=== PATIENT | female | born 1995 | race Hispanic/Latino ===

== ENCOUNTER 2017-02-05 20:08 | Emergency (ER) | payer OTHER ==
[~2017-02-05 20:08] MED LIST: DOCU-41 PO; HYDR-4003 PO; IBUP800T28 PO; NOMED; PROC5TAB50 PO
[2017-02-05 20:11] VITALS: BP 118/77; PULSE 65; RESP 16; O2SAT 99
--- NOTE | 2017-02-05 20:53 | ED.REPORT ---
HPI-Back Pain Under 40 Date of Service Feb 05, 2017 ED Provider: Dr. Emmett Garrdio The patient is an otherwise healthy 21 year old female who presents to the ED c/ o back pain onset yesterday after falling while playing volleyball and landing on her back. She did not initially feel any pain. Then, this morning she woke up with severe back pain that radiates down both legs. Pain is exacerbated by movement. Pt denies dysuria, , incontinence, bowel or bladder dysfunction, weakness, numbness, urinary changes, or any other symptoms. Nursing Notes Stated Complaint: LUMBAR PAIN Chief Complaint: Back Pain or Injury Nursing Notes Reviewed: Yes Allergies: Coded Allergies: No Known Allergies (Verified Allergy, Unknown, 02/05/17) Scheduled Docusate Sodium (Colace) 100 Mg Capsule 100 MG PO DAILY Prochlorperazine Maleate (Compazine) 5 Mg Tablet 5 MG PO QID Scheduled PRN Hydrocodone-Acetaminophen 5-325 mg (Hydrocodone-Acetaminophen 5-325 mg) 1 Each Tablet 1-2 TABLET PO Q4H PRN PRN For Pain Ibuprofen (Ibuprofen) 800 Mg Tablet 800 MG PO Q6H PRN PRN For Pain Miscellaneous Medications No Historical Medication (No Historical Medication) Ea General Time Seen by MD: 20:53 Chief Complaint Back pain Hx Obtained From: Patient Arrived By: Walk-in Sudden in Onset?: Yes Onset Occurred: Yesterday Symptom Duration: Since onset Caused by: Fall Location: : Spinal lumbar area Quality: Painful Radiation: : Left leg below knee: Right leg below knee Severity: Current: Severe Pertinent Negative: Pt denies other symptoms Exacerbated by: Movement Recent Healthcare: No recent doctor visit, No recent hospitalization Similar Sx Previous: No Past Medical History Past Medical History Denies Past Surgical History Denies Smoking History Never Smoker Social History Other Social History: Local resident Ambulatory Status Independent Review of Systems Female: Denies: Dysuria, Incontinence, Urinary frequency, Urination decreased Musculoskeletal: Reports: Back pain, Extremity pain, Denies: Neck pain Neurologic: Denies: Bladder dysfunction, Bowel dysfunction, Focal weakness, Numbness Complete sys rev & neg: except as marked. Physical Exam Physical Exam Notes: Initial Vital Signs Vital Signs (First) Date Time Temp Pulse Resp B/P Pulse Ox O2 Delivery O2 Flow Rate FiO2 02/05/17 20:11 36.5 65 16 118/77 99 Room Air Initial VS: Reviewed General/Constitutional: Awake, Alert, Cooperative Flank / Spine / Paraspinal: Positive: Lumbar paraspinal tend... tender at L5 and S1 Neurologic: Oriented X3, Speech NL Neck: Atraumatic, Supple Lower Extremity / Pelvis / MS: Atraumatic, Full range of motion, No deformity Head / Eyes: Atraumatic, Normocephalic ENT: Atraumatic, Mucous membranes moist Upper Extremity / MS: Atraumatic, Full range of motion, No deformity Wrist / Hand: Atraumatic, Full range of motion, No deformity Ankle / Foot: Atraumatic, Full range of motion, No deformity Skin: Atraumatic, Color NL, No rash Interpretation & Diagnostics Interpretation & Diagnostics: PELVIS X-RAY IMPRESSION: No acute fracture. No osseous lesion. If clinical suspicion and/or symptoms persist, further assessment with repeat plainfilms, or advanced imaging (e.g., CT, MRI, or bone scan) may be helpful for further assessment. Dictated by: Lynnette Mayer M.D. on 02/05/2017 at 21:50 Approved by: Lynnette Mayer M.D. on 02/05/2017 at 21:50 X-Ray Interpretation Xray Interpretation: LUMBAR SPINE X-RAY IMPRESSION: No acute fracture. No osseous lesion. If clinical suspicion and/or symptoms persist, further assessment with repeat plainfilms, or advanced imaging (e.g., CT, MRI, or bone scan) may be helpful for further assessment. Dictated by: Lynnette Mayer M.D. on 02/05/2017 at 21:50 Approved by: Lynnette Mayer M.D. on 02/05/2017 at 21:51 Interpretation / Wet Read by: Interpret - Radiologist Re-Eval/Medical Decision Med Decision/Clinical Course 2100: plan for Toradol and lumbar spine and pelvic x-ray X-rays reassuring. No fracture. Brief course of NSAIDs and opiates for moderate to severe pain. Close outpatient follow-up. Routine opiate warnings given. Counseled Regarding: Diagnosis, Lab results, Need for follow-up, When/why to return to ED Discharge & Departure Impression: Primary Impression: Low back pain Chronicity: acute Back pain laterality: bilateral Sciatica presence: unspecified whether sciatica present Qualified Code: M54.5 - Low back pain Disposition: Home All VS Reviewed: Yes Condition: Stable Patient Instructions: Acute Low Back Pain (ED), Low Back Strain (ED) Additional Instructions: Thank you for entrusting us with your care today. Your x-rays are reassuring, I suspect you have a soft tissue injury. You will likely be very sore for the next 5 days. Take Naproxen 2x/daily for moderate pain. Take 1-2 [place] every 6 hours as needed for severe pain. This can be habit forming so use sparingly. Do not drive or drink alcohol consume acetaminophen for taking the [place]. Follow up with your primary care physician in the next week. Return to the Emergency Department if you experience any new or worsening symptoms. I hope you feel better soon! Referrals: [facility] (PCP) Chrisibcharmaine Attestation Portion of this note were transcribed by Ankita Baez. I, Dr. Garrido, personally performed the history, physical exam, and medical decision-making: I reviewed and confirmed the accuracy for the information in the transcribed note. Signed by: yoli De La Cruz, 02/05/17 2200 copies to: [facility] Emmett Garrido DO Feb 05, 2017 20:53 Ankita Baez Feb 05, 2017 21:06
[2017-02-05] MEDS ORDERED: _HYDROcodone/APAP 5-325 mg Tablet PO PRN (21:10)
--- NOTE | 2017-02-05 21:52 | DRSVH ---
PROCEDURE: X-RAY PELVIS, ONE OR TWO VIEWS ([id number]) INDICATIONS: fall, back and pelvic pain TECHNIQUE: 1 view(s) of the pelvis acquired. COMPARISON: None. FINDINGS: Bones: No fractures or dislocations. No suspicious bony lesions. Soft tissues: Visualized bowel gas pattern is normal. No suspicious soft tissue calcifications. IMPRESSION: No acute fracture. No osseous lesion. If clinical suspicion and/or symptoms persist, fur ther assessment with repeat plainfilms, or advanced imaging (e.g., CT, MRI, or bone scan) may be help ful for further assessment. Dictated by: Lynnette Mayer M.D. on 02/05/2017 at 21:50 Approved by: Lynnette Mayer M.D. on 02/05/2017 at 21:50
--- NOTE | 2017-02-05 21:52 | DRSVH ---
PROCEDURE: X-RAY LUMBAR SPINE, 2 OR 3 VIEW INDICATIONS: fall, back and pelvic pain TECHNIQUE: 3 views of the lumbar spine were acquired. COMPARISON: None. FINDINGS: Bones: 5 [id number] vertebrae are present. There is normal bony alignment. No vertebral body c ompression fractures. No suspicious bony lesions. Soft tissues: Overlying bowel gas pattern is normal. No suspicious soft tissue calcifications. IMPRESSION: No acute fracture. No osseous lesion. If clinical suspicion and/or symptoms persist, fur ther assessment with repeat plainfilms, or advanced imaging (e.g., CT, MRI, or bone scan) may be help ful for further assessment. Dictated by: Lynnette Mayer M.D. on 02/05/2017 at 21:50 Approved by: Lynnette Mayer M.D. on 02/05/2017 at 21:51
[2017-02-05 22:45] VITALS: BP 117/69; PULSE 63; RESP 16; O2SAT 99
== END 2017-02-05 22:47 | disposition home or self-care (01) ==
LOC: SED 20:08
DX: M54.5 Low back pain (principal); W18.39XA Other fall on same level, initial encounter; Y93.68 Activity, volleyball (beach) (court); Y92.89 Other specified places as the place of occurrence of the external cause; Y99.8 Other external cause status
CPT/HCPCS: 72100; 72170; 96372; 99284; J1885